=== PATIENT | female | born 1955 | race Caucasian/White ===

== ENCOUNTER 2020-06-21 09:56 | Outpatient (CLI) | payer OTHER | END 2020-06-21 09:57 | disposition home or self-care (01) | LOC: BICMAMMO 09:56 | PROVIDERS: ATTEND Registered Nurse | DX: Z12.31 Encounter for screening mammogram for malignant neoplasm of breast (principal); Z13.820 Encounter for screening for osteoporosis; Z78.0 Asymptomatic menopausal state | CPT/HCPCS: 77063; 77067; 77080 ==

== ENCOUNTER 2021-11-26 09:03 | Outpatient (CLI) | payer MEDICARE | END 2021-11-26 09:04 | disposition home or self-care (01) | LOC: BICMAMMO 09:03 | PROVIDERS: ATTEND Registered Nurse | DX: Z12.31 Encounter for screening mammogram for malignant neoplasm of breast (principal); R92.1 Mammographic calcification found on diagnostic imaging of breast | CPT/HCPCS: 77063; 77067 ==

== ENCOUNTER 2022-09-30 09:32 | Outpatient (CLI) | payer MEDICARE, OTHER | END 2022-09-30 09:33 | disposition home or self-care (01) | LOC: BICMAMMO 09:32 | PROVIDERS: ATTEND Registered Nurse | DX: N60.01 Solitary cyst of right breast (principal); N64.4 Mastodynia; N64.89 Other specified disorders of breast | CPT/HCPCS: 76642; 77066; G0279 ==

== ENCOUNTER 2023-01-13 09:37 | Outpatient (CLI) | payer MEDICARE, OTHER | END 2023-01-13 09:38 | disposition home or self-care (01) | LOC: BICMAMMO 09:37 | PROVIDERS: ATTEND Internal Medicine Endocrinology, Diabetes & Metabolism | DX: Z13.820 Encounter for screening for osteoporosis (principal); Z78.0 Asymptomatic menopausal state | CPT/HCPCS: 77080 ==

== ENCOUNTER 2023-12-08 14:26 | Outpatient (CLI) | payer MEDICARE, OTHER | END 2023-12-08 14:27 | disposition home or self-care (01) | LOC: BICMAMMO 14:26 | PROVIDERS: ATTEND Registered Nurse | DX: Z12.31 Encounter for screening mammogram for malignant neoplasm of breast (principal); N63.11 Unspecified lump in the right breast, upper outer quadrant | CPT/HCPCS: 77063; 77067 ==

== ENCOUNTER 2023-12-18 09:31 | Outpatient (CLI) | payer MEDICARE, OTHER | END 2023-12-18 09:32 | disposition home or self-care (01) | LOC: BICMAMMO 09:31 | PROVIDERS: ATTEND Registered Nurse | DX: N63.15 Unspecified lump in the right breast, overlapping quadrants (principal); N60.01 Solitary cyst of right breast | CPT/HCPCS: 76642; 77065; G0279 ==

== ENCOUNTER 2025-01-14 09:23 | Outpatient (CLI) | payer MEDICARE, OTHER | END 2025-01-14 09:24 | disposition home or self-care (01) | LOC: BICMAMMO 09:23 | PROVIDERS: ATTEND Internal Medicine Endocrinology, Diabetes & Metabolism | DX: Z12.31 Encounter for screening mammogram for malignant neoplasm of breast (principal); Z78.0 Asymptomatic menopausal state; R92.333 Mammographic heterogeneous density, bilateral breasts | CPT/HCPCS: 77063; 77067; 77080 ==